=== PATIENT | male | born 1950 | race Caucasian/White ===

== ENCOUNTER 2021-04-06 20:54 | Inpatient (IN) ==
[2021-04-06] MEDS ORDERED: Morphine 4 MG/ML VIAL (1 ml) IV ONE (21:02)
[2021-04-06 22:08] LABS: ABS Eosinophils 0.1 10^3/ul (0-0.6); ABS Lymphocytes 0.7 10^3/ul (1.0-4.8); ABS Monocytes 0.7 10^3/ul (0-0.8); ABS Neutrophils 16.5 10^3/ul (1.5-7.7); Eosinophil % 0.8 %; Hematocrit 48 % (42-52); Hemoglobin 15.5 g/dL (14.0-18.0); Lymphocyte % 4.1 %; Mean Corpuscular HGB Conc 32 g/dL (31-36); Mean Corpuscular Hemoglobin 31 pg (27-31); Mean Corpuscular Volume 95 fL (80-94); Mean Platelet Volume 8.1 fL (7.4-10.4); Platelet Count 245 10^3/uL (150-450); Red Blood Count 5.07 10^6 /uL (4.18-5.48); Red Cell Distribution Width 16 % (10-15)
[2021-04-06 22:14] LABS: Albumin 3.5 g/dL (3.2-5.2); Calcium 8.9 mg/dL (8.6-10.3); Potassium 3.9 mmol/L (3.5-5.0); Total Bilirubin 0.5 mg/dL (0.2-1.0)
[2021-04-06 22:20] LABS: Albumin/Globulin Ratio 1.1 (1-3); C Reactive Protein 11.13 mg/L (<8.01); EGFR African American 79.8 (>60); Globulin 3.2 g/dL (2-4); Total Protein 6.7 g/dL (6.4-8.9)
[2021-04-06] MEDS ORDERED: Iohexol 300 (CONTRAST) 10 ML SDV IV ONE (23:15)
[2021-04-07] MEDS ORDERED: Morphine 4 MG/ML VIAL (1 ml) IV ONE (00:38)
[2021-04-07] MEDS ORDERED: Ondansetron 4 mg VIAL 2 MG/ML 2 ml VIAL IV ONE (01:00)
[2021-04-07] MEDS ORDERED: Ondansetron 4 mg VIAL 2 MG/ML 2 ml VIAL ONE (01:02)
[2021-04-07] MEDS ORDERED: Ondansetron 4 mg VIAL 2 MG/ML 2 ml VIAL IV PRN (02:42)
[2021-04-07] MEDS: NS 0.9% 1000 ml BAG 1,000 ML IV SCH ×2 (05:33→19:23)
[2021-04-08 05:52] LABS: ABS Basophils 0.1 10^3/ul (0-0.2); ABS Eosinophils 0.3 10^3/ul (0-0.6); ABS Lymphocytes 0.7 10^3/ul (1.0-4.8); ABS Monocytes 0.7 10^3/ul (0-0.8); ABS Neutrophils 10.9 10^3/ul (1.5-7.7); Hematocrit 45 % (42-52); Hemoglobin 14.7 g/dL (14.0-18.0); Lymphocyte % 5.7 %; Mean Corpuscular HGB Conc 33 g/dL (31-36); Mean Corpuscular Hemoglobin 30 pg (27-31); Mean Corpuscular Volume 92 fL (80-94); Mean Platelet Volume 7.7 fL (7.4-10.4); Platelet Count 309 10^3/uL (150-450); Red Blood Count 4.87 10^6 /uL (4.18-5.48); Red Cell Distribution Width 16 % (10-15); White Blood Count 12.8 10^3/uL (3.5-10.8)
[2021-04-08 06:13] LABS: Calcium 8.5 mg/dL (8.6-10.3); EGFR African American 75.9 (>60); EGFR Non-African American 62.7 (>60); Magnesium 2.1 mg/dL (1.9-2.7); Potassium 4.2 mmol/L (3.5-5.0)
[2021-04-08] MEDS: NS 0.9% 1000 ml BAG 1,000 ML IV SCH ×3 (08:30→21:02)
[2021-04-08] MEDS: Benzocaine/Menthol LOZ MT PRN ×3 (11:26→23:42)
[2021-04-08] MEDS: hydrALAZINE 20 mg/ml 1 ML Vial IV IV SLOW PU PRN ×2 (16:48→23:52)
[2021-04-09] MEDS: NS 0.9% 1000 ml BAG 1,000 ML IV SCH ×2 (03:10→09:48)
[2021-04-09 05:06] LABS: Hematocrit 43 % (42-52); Hemoglobin 14.2 g/dL (14.0-18.0); Mean Corpuscular HGB Conc 33 g/dL (31-36); Mean Corpuscular Hemoglobin 31 pg (27-31); Mean Corpuscular Volume 93 fL (80-94); Platelet Count 320 10^3/uL (150-450); Red Blood Count 4.61 10^6 /uL (4.18-5.48); Red Cell Distribution Width 16 % (10-15); White Blood Count 10.7 10^3/uL (3.5-10.8)
[2021-04-09] MEDS: Benzocaine/Menthol LOZ MT PRN (05:43)
[2021-04-09] MEDS: BALSALAZIDE 750 MG PO SCH ×2 (15:29→21:46)
[2021-04-10] MEDS: BALSALAZIDE 750 MG PO SCH ×2 (08:56→14:37)
[2021-04-10 16:05] VITALS: BP 162/76
== END 2021-04-10 17:45 | disposition home or self-care (01) | DRG 389 ==
LOC: ED 20:54 → SSU 04-07 02:52
PROVIDERS: ADMIT Internal Medicine; ATTEND Internal Medicine

== ENCOUNTER 2021-08-02 01:58 | Inpatient (IN) ==
[2021-08-02 03:10] LABS: ABS Basophils 0.1 10^3/ul (0-0.2); ABS Lymphocytes 0.8 10^3/ul (1.0-4.8); ABS Monocytes 0.8 10^3/ul (0-0.8); Eosinophil % 0.1 %; Hematocrit 48 % (42-52); Lymphocyte % 4.3 %; Mean Corpuscular HGB Conc 33 g/dL (31-36); Mean Corpuscular Hemoglobin 30 pg (27-31); Mean Corpuscular Volume 90 fL (80-94); Mean Platelet Volume 7.9 fL (7.4-10.4); Platelet Count 339 10^3/uL (150-450); Red Blood Count 5.33 10^6 /uL (4.18-5.48); Red Cell Distribution Width 16 % (10-15); White Blood Count 18.8 10^3/uL (3.5-10.8)
[2021-08-02] MEDS ORDERED: Morphine 4 MG/ML VIAL (1 ml) IV ONE (03:17)
[2021-08-02 03:26] LABS: Albumin 3.8 g/dL (3.2-5.2); Albumin/Globulin Ratio 1.2 (1-3); Calcium 9.3 mg/dL (8.6-10.3); Globulin 3.2 g/dL (2-4); Potassium 4.1 mmol/L (3.5-5.0); Total Bilirubin 0.7 mg/dL (0.2-1.0)
[2021-08-02] MEDS ORDERED: Iohexol 300 (CONTRAST) 10 ML SDV IV ONE (03:45)
[2021-08-02 03:56] LABS: Rapid COVID-19 Molecular Undetected (Undetected)
[2021-08-02] MEDS: Morphine 4 MG/ML VIAL (1 ml) IV PRN ×2 (08:19→12:52)
[2021-08-02] MEDS ORDERED: NS 0.9% 1000 ml BAG 1,000 ML IV ONE (08:22)
[2021-08-02] MEDS ORDERED: hydrALAZINE 20 mg/ml 1 ML Vial IV IV SLOW PU PRN (08:34)
[2021-08-02] MEDS ORDERED: Acetaminophen IV 1 GM/100ML 100 ML IV PRN (09:25)
[2021-08-02] MEDS ORDERED: Morphine 2 MG/ML SYRINGE IV PRN (09:25)
[2021-08-02] MEDS: Pantoprazole VIAL 40 MG VIAL IV SCH (10:28)
[2021-08-02 11:44] LABS: Urine Appearance Clear; Urine Bacteria 1+ (Absent); Urine Bilirubin Negative (Negative); Urine Blood Negative (Negative); Urine Color Yellow; Urine Glucose Negative (Negative); Urine Ketones Negative (Negative); Urine Nitrite Negative (Negative); Urine Protein 1+(30 mg/dL) (Negative); Urine Red Blood Cell 3+(>10/hpf) (Absent); Urine Squamous Epithelial Cell Present (Absent); Urine Urobilinogen Negative (Negative); Urine White Blood Cell Absent (Absent)
[2021-08-02 11:45] LABS: Urine Specific Gravity > 1.060 (1.002-1.030)
[2021-08-02] MEDS: NS 0.9% 1000 ml BAG 1,000 ML IV SCH (13:07)
[2021-08-03] MEDS: NS 0.9% 1000 ml BAG 1,000 ML IV SCH ×3 (00:14→23:38)
[2021-08-03 06:59] LABS: ABS Basophils 0.1 10^3/ul (0-0.2); ABS Eosinophils 0.3 10^3/ul (0-0.6); ABS Lymphocytes 0.8 10^3/ul (1.0-4.8); ABS Monocytes 0.7 10^3/ul (0-0.8); ABS Neutrophils 8.9 10^3/ul (1.5-7.7); Eosinophil % 2.4 %; Hematocrit 43 % (42-52); Hemoglobin 14.7 g/dL (14.0-18.0); Lymphocyte % 7.1 %; Mean Corpuscular HGB Conc 34 g/dL (31-36); Mean Corpuscular Hemoglobin 31 pg (27-31); Mean Corpuscular Volume 92 fL (80-94); Mean Platelet Volume 8.2 fL (7.4-10.4); Platelet Count 291 10^3/uL (150-450); Red Blood Count 4.72 10^6 /uL (4.18-5.48); Red Cell Distribution Width 16 % (10-15); White Blood Count 10.7 10^3/uL (3.5-10.8)
[2021-08-03 07:19] LABS: Calcium 8.1 mg/dL (8.6-10.3); Potassium 4.2 mmol/L (3.5-5.0)
[2021-08-03] MEDS: Pantoprazole VIAL 40 MG VIAL IV SCH (08:32)
[2021-08-03] MEDS: Benzocaine/Menthol LOZ PO PRN ×2 (11:15→23:36)
[2021-08-04 06:28] LABS: ABS Eosinophils 0.3 10^3/ul (0-0.6); ABS Lymphocytes 0.7 10^3/ul (1.0-4.8); ABS Monocytes 0.6 10^3/ul (0-0.8); ABS Neutrophils 6.2 10^3/ul (1.5-7.7); Eosinophil % 4.3 %; Hematocrit 42 % (42-52); Hemoglobin 13.8 g/dL (14.0-18.0); Lymphocyte % 8.9 %; Mean Corpuscular HGB Conc 33 g/dL (31-36); Mean Corpuscular Hemoglobin 30 pg (27-31); Mean Corpuscular Volume 92 fL (80-94); Mean Platelet Volume 8.1 fL (7.4-10.4); Nucleated Red Blood Cells % 0.1; Platelet Count 260 10^3/uL (150-450); Red Blood Count 4.54 10^6 /uL (4.18-5.48); Red Cell Distribution Width 16 % (10-15); White Blood Count 7.9 10^3/uL (3.5-10.8)
[2021-08-04 06:54] LABS: Calcium 8.2 mg/dL (8.6-10.3); Magnesium 2.1 mg/dL (1.9-2.7); Potassium 4.1 mmol/L (3.5-5.0)
[2021-08-04] MEDS: Benzocaine/Menthol LOZ PO PRN ×3 (07:44→20:12)
[2021-08-04] MEDS: Pantoprazole VIAL 40 MG VIAL IV SCH (09:16)
[2021-08-04] MEDS: NS 0.9% 1000 ml BAG 1,000 ML IV SCH (22:10)
[2021-08-05] MEDS: Benzocaine/Menthol LOZ PO PRN (04:16)
[2021-08-05 06:32] LABS: Calcium 8.3 mg/dL (8.6-10.3); Potassium 4.4 mmol/L (3.5-5.0)
[2021-08-05] MEDS: Pantoprazole VIAL 40 MG VIAL IV SCH (08:22)
[2021-08-05] MEDS: NS 0.9% 1000 ml BAG 1,000 ML IV SCH (08:22)
[2021-08-05 11:54] VITALS: BP 143/64
[2021-08-05] MEDS ORDERED: BALSALAZIDE 750 MG PO SCH (14:00)
== END 2021-08-05 16:30 | disposition home or self-care (01) | DRG 386 ==
LOC: SSU 01:58 → ED 01:58 → SUATTDRO 08:29
PROVIDERS: ADMIT Internal Medicine; ATTEND Student in an Organized Health Care Education/Training Program

== ENCOUNTER 2021-10-11 23:51 | Inpatient (IN) ==
[2021-10-11] MEDS ORDERED: NS 0.9% 1000 ml BAG 1,000 ML IV ONE (23:54)
[2021-10-12 01:14] LABS: Hematocrit 52 % (42-52); Hemoglobin 17.5 g/dL (14.0-18.0); Mean Corpuscular HGB Conc 34 g/dL (31-36); Mean Corpuscular Hemoglobin 31 pg (27-31); Mean Corpuscular Volume 91 fL (80-94); Mean Platelet Volume 8.5 fL (7.4-10.4); Platelet Count 275 10^3/uL (150-450); Red Blood Count 5.69 10^6 /uL (4.18-5.48); Red Cell Distribution Width 16 % (10-15); White Blood Count 22.7 10^3/uL (3.5-10.8)
[2021-10-12 01:23] LABS: Activated Partial Thrombo Time 26.3 seconds (26.0-38.0)
[2021-10-12 01:35] LABS: BNP 172 pg/mL (<=100)
[2021-10-12 01:38] LABS: ABS Basophils 0.1 10^3/ul (0-0.2); ABS Eosinophils 0.1 10^3/ul (0-0.6); ABS Lymphocytes 0.2 10^3/ul (1.0-4.8); ABS Monocytes 1.2 10^3/ul (0-0.8); ABS Neutrophils 21.2 10^3/ul (1.5-7.7); Anisocytosis 1+; Eosinophil % 0.3 %; Lymphocyte % 0.8 %
[2021-10-12] MEDS ORDERED: levETIRAcetam 1000MG IVPREMIX 1,000 MG/100 ML BAG IVPB ONE (01:38)
[2021-10-12 01:53] LABS: Ammonia 24 mcmol/L (16-53)
[2021-10-12 02:11] LABS: Alcohol, S < 13 mg/dL (<13)
[2021-10-12 02:16] LABS: ALT 13 U/L (7-52); AST 21 U/L (13-39); Albumin 4.1 g/dL (3.2-5.2); Albumin/Globulin Ratio 1.5 (1-3); Alkaline Phosphatase 72 U/L (35-149); Anion Gap 11 mmol/L (2-11); Blood Urea Nitrogen 19 mg/dL (6-24); CO2 Carbon Dioxide 24 mmol/L (22-32); Calcium 8.9 mg/dL (8.6-10.3); Chloride 105 mmol/L (101-111); Creatine Kinase 382 U/L (10-223); Globulin 2.8 g/dL (2-4); Glucose 143 mg/dL (70-100); Magnesium 1.9 mg/dL (1.9-2.7); Potassium 3.6 mmol/L (3.5-5.0); Sodium 140 mmol/L (135-145); Total Protein 6.9 g/dL (6.4-8.9); eGFR CKD-EPI 41.4 (>60)
[2021-10-12 02:17] LABS: Troponin I 0.05 ng/mL (<0.03)
[2021-10-12 02:27] LABS: TSH Ultra Thyroid Stim Horm 18.49 mcIU/mL (0.34-5.60)
[2021-10-12] MEDS: NS 0.9% 1000 ml BAG 1,000 ML IV SCH ×2 (02:33→02:35)
[2021-10-12 03:20] LABS: C Reactive Protein 11.33 mg/L (<8.01)
[2021-10-12 04:17] LABS: Free T4 1.22 ng/dL (0.61-1.12)
[2021-10-12 04:21] LABS: Total T3 134 ng/dL (87-178)
[2021-10-12 04:33] LABS: Hematocrit 47 % (42-52); Hemoglobin 15.6 g/dL (14.0-18.0); Mean Corpuscular HGB Conc 33 g/dL (31-36); Mean Corpuscular Hemoglobin 31 pg (27-31); Mean Corpuscular Volume 93 fL (80-94); Mean Platelet Volume 8.6 fL (7.4-10.4); Platelet Count 272 10^3/uL (150-450); Red Blood Count 5.09 10^6 /uL (4.18-5.48); Red Cell Distribution Width 17 % (10-15); White Blood Count 22.9 10^3/uL (3.5-10.8)
[2021-10-12 04:51] LABS: Anion Gap 7 mmol/L (2-11); Blood Urea Nitrogen 22 mg/dL (6-24); CO2 Carbon Dioxide 24 mmol/L (22-32); Chloride 109 mmol/L (101-111); Glucose 140 mg/dL (70-100); Potassium 4.1 mmol/L (3.5-5.0); Sodium 140 mmol/L (135-145); eGFR CKD-EPI 40.6 (>60)
[2021-10-12 04:57] LABS: ABS Basophils 0.1 10^3/ul (0-0.2); ABS Lymphocytes 0.2 10^3/ul (1.0-4.8); ABS Monocytes 1.3 10^3/ul (0-0.8); ABS Neutrophils 21.3 10^3/ul (1.5-7.7); Anisocytosis 1+; Eosinophil % 0.1 %; Lymphocyte % 0.9 %; Troponin I 0.23 ng/mL (<0.03)
[2021-10-12] MEDS ORDERED: Lactated Ringers 1000 ml BAG 1,000 ML IV SCH (05:00)
[2021-10-12 05:48] LABS: INR 1.1 (0.86-1.15)
[2021-10-12] MEDS: levETIRAcetam 500 MG IVPREMIX 500 MG/100 ML BAG IV SCH ×2 (09:32→21:11)
[2021-10-12] MEDS: BALSALAZIDE 750 MG PO SCH ×3 (11:32→21:18)
[2021-10-12] MEDS ORDERED: levETIRAcetam 1000MG IVPREMIX 1,000 MG/100 ML BAG IVPB SCH (13:00)
[2021-10-12 14:20] LABS: ABS Basophils 0.1 10^3/ul (0-0.2); ABS Lymphocytes 0.5 10^3/ul (1.0-4.8); ABS Monocytes 1.2 10^3/ul (0-0.8); ABS Neutrophils 16.8 10^3/ul (1.5-7.7); Eosinophil % 0.1 %; Hematocrit 45 % (42-52); Hemoglobin 14.9 g/dL (14.0-18.0); Lymphocyte % 2.5 %; Mean Corpuscular HGB Conc 33 g/dL (31-36); Mean Corpuscular Hemoglobin 30 pg (27-31); Mean Corpuscular Volume 91 fL (80-94); Mean Platelet Volume 8.5 fL (7.4-10.4); Nucleated Red Blood Cells % 0.2; Platelet Count 282 10^3/uL (150-450); Red Blood Count 4.89 10^6 /uL (4.18-5.48); Red Cell Distribution Width 16 % (10-15); White Blood Count 18.5 10^3/uL (3.5-10.8)
[2021-10-12] MEDS: Chlorhexidine MOUTHWASH 0.12% 15 ML UDC SWISH SPIT SCH ×3 (14:36→21:24)
[2021-10-12 14:37] LABS: Blood Urea Nitrogen 27 mg/dL (6-24); CO2 Carbon Dioxide 25 mmol/L (22-32); Chloride 109 mmol/L (101-111); Glucose 109 mg/dL (70-100); Sodium 140 mmol/L (135-145)
[2021-10-12 14:42] LABS: Troponin I 0.66 ng/mL (<0.03)
[2021-10-12 14:43] LABS: Anion Gap 6 mmol/L (2-11)
[2021-10-12] MEDS ORDERED: NS 0.9% 1000 ml BAG 1,000 ML IV SCH (15:45)
[2021-10-12] MEDS ORDERED: Cefepime 2 GM in Dextrose 2 GM/50 ML BAG IV SCH (16:00)
[2021-10-12] MEDS ORDERED: metroNIDAZOLE IV 500 MG/100ML 500 MG/100 ML BAG IVPB SCH (16:00)
[2021-10-12] MEDS ORDERED: ZOSYN 3.375 GM x ONE DOSE over 30 miuntes IV (18:00)
[2021-10-12] MEDS ORDERED: Zosyn per Pharmacy NOTE FOLLOW UP PRN (18:01)
[2021-10-12 19:45] LABS: Troponin I 0.48 ng/mL (<0.03)
[2021-10-12 20:03] LABS: Potassium Redraw 4.1 mmol/L (3.5-5.0)
[2021-10-13] MEDS: ZOSYN 3.375 GM Q8H per EXTENDED INFUSION IV SCH ×3 (00:18→17:31)
[2021-10-13 00:53] LABS: Urine Appearance Cloudy; Urine Bilirubin Negative (Negative); Urine Blood 1+ (Negative); Urine Color Amber; Urine Glucose Negative (Negative); Urine Ketones Negative (Negative); Urine Nitrite Negative (Negative); Urine Protein 1+(30 mg/dL) (Negative); Urine Specific Gravity 1.023 (1.002-1.030); Urine Urobilinogen Negative (Negative)
[2021-10-13 00:56] LABS: Urine Bacteria Absent (Absent); Urine Red Blood Cell Trace(0-2/hpf) (Absent); Urine Squamous Epithelial Cell Present (Absent); Urine White Blood Cell Trace(0-5/hpf) (Absent)
[2021-10-13 01:05] LABS: Urine Benzodiazepine Screen None Detected (None Detect); Urine Cannabinoids Screen None Detected (None Detect); Urine Opiates Screen None Detected (None Detect)
[2021-10-13 05:37] LABS: ABS Basophils 0.1 10^3/ul (0-0.2); ABS Eosinophils 0.2 10^3/ul (0-0.6); ABS Lymphocytes 0.7 10^3/ul (1.0-4.8); Eosinophil % 1.7 %; Hematocrit 41 % (42-52); Hemoglobin 13.6 g/dL (14.0-18.0); Lymphocyte % 5.8 %; Mean Corpuscular HGB Conc 33 g/dL (31-36); Mean Corpuscular Hemoglobin 30 pg (27-31); Mean Corpuscular Volume 92 fL (80-94); Mean Platelet Volume 8.6 fL (7.4-10.4); Platelet Count 252 10^3/uL (150-450); Red Blood Count 4.48 10^6 /uL (4.18-5.48); Red Cell Distribution Width 17 % (10-15)
[2021-10-13 05:54] LABS: Calcium 7.9 mg/dL (8.6-10.3); Magnesium 1.9 mg/dL (1.9-2.7); Potassium 4.1 mmol/L (3.5-5.0); eGFR CKD-EPI 52.1 (>60)
[2021-10-13] MEDS ORDERED: Albuterol HFA INHALER 8 gm MDI INH PRN (07:18)
[2021-10-13] MEDS ORDERED: Lactated Ringers 1000 ml BAG 1,000 ML IV SCH (08:00)
[2021-10-13] MEDS ORDERED: Adalimumab (NF) 40 MG/0.8 ML KIT SUBCUT SCH (09:00)
[2021-10-13] MEDS: levETIRAcetam 500 MG IVPREMIX 500 MG/100 ML BAG IV SCH ×2 (09:39→21:21)
[2021-10-13] MEDS: Chlorhexidine MOUTHWASH 0.12% 15 ML UDC SWISH SPIT SCH ×3 (09:45→21:21)
[2021-10-13] MEDS: BALSALAZIDE 750 MG PO SCH ×3 (10:04→21:21)
[2021-10-13] MEDS ORDERED: BALSALAZIDE 750 MG PO SCH (10:50)
[2021-10-13 19:33] LABS: HDL Cholesterol 24.5 mg/dL
[2021-10-14] MEDS: ZOSYN 3.375 GM Q8H per EXTENDED INFUSION IV SCH ×3 (00:06→17:06)
[2021-10-14 06:14] LABS: ABS Eosinophils 0.4 10^3/ul (0-0.6); ABS Lymphocytes 0.7 10^3/ul (1.0-4.8); ABS Monocytes 0.7 10^3/ul (0-0.8); ABS Neutrophils 8.2 10^3/ul (1.5-7.7); Eosinophil % 4.5 %; Hematocrit 39 % (42-52); Hemoglobin 13.2 g/dL (14.0-18.0); Lymphocyte % 6.5 %; Mean Corpuscular HGB Conc 34 g/dL (31-36); Mean Corpuscular Hemoglobin 31 pg (27-31); Mean Corpuscular Volume 92 fL (80-94); Mean Platelet Volume 8.5 fL (7.4-10.4); Platelet Count 256 10^3/uL (150-450); Red Blood Count 4.28 10^6 /uL (4.18-5.48); Red Cell Distribution Width 16 % (10-15); White Blood Count 10.1 10^3/uL (3.5-10.8)
[2021-10-14 06:36] LABS: Calcium 8.1 mg/dL (8.6-10.3); Potassium 3.9 mmol/L (3.5-5.0)
[2021-10-14 06:42] LABS: eGFR CKD-EPI 72.9 (>60)
[2021-10-14 07:12] LABS: TSH Ultra Thyroid Stim Horm 1.46 mcIU/mL (0.34-5.60)
[2021-10-14 07:14] LABS: Free T4 0.97 ng/dL (0.61-1.12)
[2021-10-14] MEDS: BALSALAZIDE 750 MG PO SCH ×3 (07:29→21:28)
[2021-10-14] MEDS: Chlorhexidine MOUTHWASH 0.12% 15 ML UDC SWISH SPIT SCH ×3 (07:31→21:28)
[2021-10-14] MEDS: levETIRAcetam 500 MG IVPREMIX 500 MG/100 ML BAG IV SCH ×2 (07:32→22:35)
[2021-10-14 07:57] LABS: HDL Cholesterol 26.1 mg/dL
[2021-10-14] MEDS: NS 0.9% 1000 ml BAG 1,000 ML IV SCH (10:57)
[2021-10-14 16:03] LABS: C Reactive Protein 50.78 mg/L (<8.01)
[2021-10-14] MEDS ORDERED: hydrALAZINE 20 mg/ml 1 ML Vial IV IV SLOW PU ONE (23:14)
[2021-10-15] MEDS: ZOSYN 3.375 GM Q8H per EXTENDED INFUSION IV SCH ×4 (00:31→23:57)
[2021-10-15] MEDS: NS 0.9% 1000 ml BAG 1,000 ML IV SCH (00:31)
[2021-10-15] MEDS ORDERED: hydrALAZINE 20 mg/ml 1 ML Vial IV IV SLOW PU ONE (03:08)
[2021-10-15 05:50] LABS: ABS Eosinophils 0.4 10^3/ul (0-0.6); ABS Lymphocytes 0.7 10^3/ul (1.0-4.8); ABS Monocytes 0.4 10^3/ul (0-0.8); ABS Neutrophils 5.2 10^3/ul (1.5-7.7); Eosinophil % 5.3 %; Hematocrit 41 % (42-52); Hemoglobin 13.6 g/dL (14.0-18.0); Lymphocyte % 10.8 %; Mean Corpuscular HGB Conc 33 g/dL (31-36); Mean Corpuscular Hemoglobin 30 pg (27-31); Mean Corpuscular Volume 92 fL (80-94); Mean Platelet Volume 8.7 fL (7.4-10.4); Nucleated Red Blood Cells % 0.1; Platelet Count 231 10^3/uL (150-450); Red Cell Distribution Width 16 % (10-15); White Blood Count 6.8 10^3/uL (3.5-10.8)
[2021-10-15 06:09] LABS: Calcium 8.1 mg/dL (8.6-10.3); Magnesium 1.6 mg/dL (1.9-2.7); Potassium 3.5 mmol/L (3.5-5.0); eGFR CKD-EPI 91.7 (>60)
[2021-10-15] MEDS ORDERED: Magnesium Sulfate IV 3 GM in NS 0.9% 100 ml BAG 100 ML IVPB ONE (07:15)
[2021-10-15] MEDS: BALSALAZIDE 750 MG PO SCH ×3 (08:11→20:53)
[2021-10-15] MEDS: Chlorhexidine MOUTHWASH 0.12% 15 ML UDC SWISH SPIT SCH ×3 (10:43→20:56)
[2021-10-15] MEDS: levETIRAcetam 500 MG IVPREMIX 500 MG/100 ML BAG IV SCH ×2 (10:48→20:51)
[2021-10-16] MEDS ORDERED: hydrALAZINE 20 mg/ml 1 ML Vial IV IV SLOW PU ONE (04:06)
[2021-10-16 06:15] LABS: ABS Eosinophils 0.4 10^3/ul (0-0.6); ABS Lymphocytes 0.6 10^3/ul (1.0-4.8); ABS Monocytes 0.5 10^3/ul (0-0.8); ABS Neutrophils 5.6 10^3/ul (1.5-7.7); Eosinophil % 5.8 %; Hematocrit 41 % (42-52); Hemoglobin 13.6 g/dL (14.0-18.0); Lymphocyte % 8.9 %; Mean Corpuscular HGB Conc 33 g/dL (31-36); Mean Corpuscular Hemoglobin 31 pg (27-31); Mean Corpuscular Volume 92 fL (80-94); Mean Platelet Volume 8.9 fL (7.4-10.4); Platelet Count 236 10^3/uL (150-450); Red Blood Count 4.44 10^6 /uL (4.18-5.48); Red Cell Distribution Width 16 % (10-15); White Blood Count 7.3 10^3/uL (3.5-10.8)
[2021-10-16 06:27] LABS: Calcium 8.1 mg/dL (8.6-10.3); Magnesium 1.8 mg/dL (1.9-2.7); Potassium 3.6 mmol/L (3.5-5.0); eGFR CKD-EPI 90.7 (>60)
[2021-10-16] MEDS: BALSALAZIDE 750 MG PO SCH ×3 (08:03→20:01)
[2021-10-16] MEDS: Chlorhexidine MOUTHWASH 0.12% 15 ML UDC SWISH SPIT SCH ×3 (08:04→20:01)
[2021-10-16] MEDS: ZOSYN 3.375 GM Q8H per EXTENDED INFUSION IV SCH ×2 (08:04→15:33)
[2021-10-16] MEDS: levETIRAcetam 500 MG IVPREMIX 500 MG/100 ML BAG IV SCH (09:32)
[2021-10-16] MEDS ORDERED: Magnesium Sulfate 2 gm BAG 2 GM/50 ML BAG IVPB ONE (09:45)
[2021-10-16] MEDS ORDERED: ADALIMUMAB 40 MG/0.8 ML SUBCUT SCH (14:00)
[2021-10-16 15:44] LABS: Calprotectin 1766 mcg/g
[2021-10-17 06:13] LABS: Calcium 8.4 mg/dL (8.6-10.3); Magnesium 1.9 mg/dL (1.9-2.7); Potassium 3.8 mmol/L (3.5-5.0)
[2021-10-17] MEDS: Chlorhexidine MOUTHWASH 0.12% 15 ML UDC SWISH SPIT SCH ×3 (08:27→20:30)
[2021-10-17] MEDS: BALSALAZIDE 750 MG PO SCH ×3 (08:27→20:30)
[2021-10-17 16:31] LABS: Percent Fat 20 % fat (< 20)
[2021-10-17] MEDS ORDERED: hydrALAZINE 20 mg/ml 1 ML Vial IV IV SLOW PU ONE (20:07)
[2021-10-17 21:13] LABS: Adenovirus F40/41 Negative (Negative); Astrovirus Negative (Negative); Cryptosporidium species Negative (Negative); Cyclospora cayetanensis Negative (Negative); Entamoeba histolytica Negative (Negative); Enteroaggregative E.coli(EAEC) Negative (Negative); Enteropathogenic Ecoli(EPEC) Negative (Negative); Enterotoxigenic Ecoli(ETEC) Negative (Negative); Norovirus GI/GII Negative (Negative); Plesiomonas shigelloides Negative (Negative); Salmonella species Negative (Negative); Sapovirus Negative (Negative); Shiga toxin producing E. coli Negative (Negative); Shigella/Enteroinvasive E.coli Negative (Negative); Specimen Source STOOL; Vibrio cholerae Negative (Negative); Yersinia species Negative (Negative)
[2021-10-17] MEDS ORDERED: Morphine 2 MG/ML SYRINGE IV ONE (21:41)
[2021-10-17 22:36] LABS: Troponin I 0.04 ng/mL (<0.03)
[2021-10-18 01:33] LABS: Hematocrit 44 % (42-52); Hemoglobin 14.7 g/dL (14.0-18.0); Mean Corpuscular HGB Conc 34 g/dL (31-36); Mean Corpuscular Hemoglobin 31 pg (27-31); Mean Corpuscular Volume 90 fL (80-94); Mean Platelet Volume 8.4 fL (7.4-10.4); Platelet Count 267 10^3/uL (150-450); Red Blood Count 4.81 10^6 /uL (4.18-5.48); Red Cell Distribution Width 16 % (10-15); White Blood Count 9.8 10^3/uL (3.5-10.8)
[2021-10-18 01:38] LABS: ABS Basophils 0.1 10^3/ul (0-0.2); ABS Eosinophils 0.4 10^3/ul (0-0.6); ABS Lymphocytes 0.5 10^3/ul (1.0-4.8); ABS Monocytes 0.8 10^3/ul (0-0.8); ABS Neutrophils 7.9 10^3/ul (1.5-7.7); Eosinophil % 4.1 %; Lymphocyte % 5.4 %; Nucleated Red Blood Cells % 0.1
[2021-10-18 01:50] LABS: ALT 31 U/L (7-52); AST 32 U/L (13-39); Albumin 3.7 g/dL (3.2-5.2); Albumin/Globulin Ratio 1.3 (1-3); Alkaline Phosphatase 73 U/L (35-149); Anion Gap 6 mmol/L (2-11); Blood Urea Nitrogen 8 mg/dL (6-24); CO2 Carbon Dioxide 29 mmol/L (22-32); Calcium 8.8 mg/dL (8.6-10.3); Chloride 102 mmol/L (101-111); Globulin 2.9 g/dL (2-4); Glucose 101 mg/dL (70-100); Potassium 3.6 mmol/L (3.5-5.0); Sodium 137 mmol/L (135-145); Total Protein 6.6 g/dL (6.4-8.9); eGFR CKD-EPI 91.7 (>60)
[2021-10-18 02:20] LABS: Troponin I 0.04 ng/mL (<0.03)
[2021-10-18 02:40] LABS: Erythrocyte Sed Rate 15 mm/Hr (0-19)
[2021-10-18] MEDS: Lidocaine PATCH 5% PATCH TRANSDERM SCH ×2 (02:54→09:25)
[2021-10-18] MEDS: BALSALAZIDE 750 MG PO SCH ×3 (09:27→22:01)
[2021-10-18] MEDS: Chlorhexidine MOUTHWASH 0.12% 15 ML UDC SWISH SPIT SCH ×3 (09:33→22:01)
[2021-10-18] MEDS: Lidocaine Patch REMOVE NOTE PATCH OFF SCH (23:00)
[2021-10-18] MEDS: Bismuth Subsalicylate (BTL) 525 MG/30 ML (BULK BTL) PO PRN (23:08)
[2021-10-19] MEDS: Bismuth Subsalicylate (BTL) 525 MG/30 ML (BULK BTL) PO PRN (00:28)
[2021-10-19] MEDS: BALSALAZIDE 750 MG PO SCH ×3 (09:39→20:53)
[2021-10-19] MEDS: Lidocaine PATCH 5% PATCH TRANSDERM SCH (09:40)
[2021-10-19] MEDS: Chlorhexidine MOUTHWASH 0.12% 15 ML UDC SWISH SPIT SCH ×3 (09:41→20:53)
[2021-10-19] MEDS: Lidocaine Patch REMOVE NOTE PATCH OFF SCH (20:56)
[2021-10-20] MEDS: Lidocaine PATCH 5% PATCH TRANSDERM SCH (10:02)
[2021-10-20] MEDS: Chlorhexidine MOUTHWASH 0.12% 15 ML UDC SWISH SPIT SCH ×2 (10:04→13:53)
[2021-10-20] MEDS: BALSALAZIDE 750 MG PO SCH ×2 (10:04→13:53)
[2021-10-20 11:31] VITALS: BP 126/49
== END 2021-10-20 15:15 | disposition home health service (06) | DRG 64 ==
LOC: ED 23:51 → EDHOLD 23:51 → MEDTELE 10-12 08:08 → SUATTDRO 10-12 16:00
PROVIDERS: ADMIT Student in an Organized Health Care Education/Training Program; ATTEND Internal Medicine